=== PATIENT | female | born 1995 ===

== ENCOUNTER 2019-07-25 18:29 | Emergency (ER) | payer OTHER ==
--- NOTE | 2019-07-25 19:16 | RAD ---
Exam:3 views left foot HISTORY: Pain. Trauma. COMPARISON: None FINDINGS: Questionable nondisplaced fracture involving the proximal fifth metatarsal. Preserved joint spaces Lisfranc alignment is maintained. IMPRESSION: Nondisplaced fracture involving the proximal fifth metatarsal. Correlate for point tender ness.
--- NOTE | 2019-07-25 19:17 | RAD ---
Exam:3 views left ankle HISTORY: Pain. Trauma. Swelling. COMPARISON: None FINDINGS: Lateral soft tissue swelling. Intact ankle mortise. No fracture. IMPRESSION: Soft tissue swelling. No fracture.
== END 2019-07-25 19:35 | disposition home or self-care (01) ==
LOC: ERS 18:29
DX: S92.352A Displaced fracture of fifth metatarsal bone, left foot, initial encounter for closed fracture (principal); S93.402A Sprain of unspecified ligament of left ankle, initial encounter; W17.89XA Other fall from one level to another, initial encounter